=== PATIENT | male | born 1970 | race Caucasian/White ===

== ENCOUNTER → 2020-09-10 | Outpatient (CLI) | payer BC ==
[~2020-09-10] MED LIST: CELECOXIB200 MG PO; FISH OIL 1,001000 M2 PO; HYDROXYCHLOROQ200 M1 PO; MULTI VITAMIN1 EACH PO; PAROXETINE HCL10 MG PO
== END ==
LOC: LAB 09:19
PROVIDERS: ATTEND Surgery
DX: Z01.812 Encounter for preprocedural laboratory examination (principal); Z20.828 Contact with and (suspected) exposure to other viral communicable diseases

== ENCOUNTER → 2020-09-15 | Day surgery (SDC) | payer BC ==
[~2020-09-15] VITALS: Ht 167.6 cm; Wt 72.6 kg
[~2020-09-15] MED LIST changes: +NORCO 5-325 TA1 EAC2 PO
[2020-09-15 12:12] VITALS: BP 115/68
[2020-09-15 14:20] VITALS: BP 115/68
[2020-09-15 14:21] VITALS: BP 115/68
--- NOTE | 2020-09-16 15:08 | O ---
[facility] [place] [address] OPERATIVE REPORT Name: DILLON HDEZ Room #: REG [facility]..#: [id number] Admission: 09/15/20 Attend Phys: Carter Navarro MD Discharge: Date of : 72 Report #: [id number] THIS REPORT FOR: cc: Luana Campbell MD, Constance M. MD Chu,Carter Mayo MD ~ CC: LUANA Navarro DATE OF SERVICE: 09/15/2020 PREOPERATIVE DIAGNOSIS: Bilateral inguinal hernia. POSTOPERATIVE DIAGNOSES: Bilateral direct inguinal hernia, small component of right indirect sac. PROCEDURE PERFORMED: Laparoscopic properitoneal repair of bilateral inguinal hernia with mesh. SURGEON: Carter Navarro MD COMPLICATIONS: None. BLOOD LOSS: 5 mL. PROCEDURE NOTE: With the patient under general anesthesia, abdomen was prepped and draped in sterile fashion. Spaulding catheter was placed after the patient was asleep. Timeout was performed. The patient did receive preoperative IV antibiotics. 0.25% Marcaine was used to anesthetize the skin lateral to the umbilicus on the right side. Transverse incision was made adjacent to the umbilicus on the right side. After dissecting through the skin and subcutaneous tissue, anterior fascia was identified. The anterior fascia was incised transversely. The muscle was spread. The posterior sheath was then palpated. The space between the muscle and the posterior sheath was dissected without difficulty. The properitoneal space was dissected bluntly with my finger. An 11 mm balloon trocar was placed. The CO2 was administered through this. With the camera, I was able to open the properitoneal space inferiorly. Once I was freed enough, I was able to put a 5-mm trocar in the properitoneal space. Dissection was then carried out with cautery and blunt dissection, freeing the properitoneal space. Dissection carried down to the pubic area. The areolar tissue was divided free. The pubic bone was isolated. I was able to see the right inferior epigastric vessel easily. Dissection was carried out laterally, freeing the lateral wall. Another 5-mm trocar was placed in the right lateral abdomen. Dissection was then carried out on the left side. The left properitoneal space was opened up. The inferior epigastric vessel on the left [address] [address] OPERATIVE REPORT Name: DILLON HDEZ Room #: [facility]..#: [id number] Admission: 09/15/20 Attend Phys: Carter Navarro MD Discharge: Date of : 72 Report #: [id number] side was visualized. There was a lobulated fat that was adhesed to the wall. Once this was freed, a direct defect was identified, moderate size. Dissection laterally over the cord structure exposed the peritoneal reflection. It did not go up into the internal ring. This peritoneal reflection was easily dissected free from the underlying cord structures and swept downward away from the cord. Dissection was then carried out on the right side. The patient did have a direct defect similar to the left side visualized. This is smaller size. Dissection over the cord structure did show peritoneum up along the cord structure. This is up a little higher than the left. This is a small indirect hernia sac component. The peritoneum was pulled off of underneath cord structure, the vas. This was reduced. Once this was completed, a left large 3DMax lightweight mesh was placed through the balloon trocar. This was then opened in the properitoneal space. This was positioned. This covered the internal ring and covered the direct hernia defect well. The mesh was tacked laterally with SorbaFix inferomedially to the Jose's ligament and SorbaFix superomedially to the rectus muscle. A second piece was then placed with the right side. This was positioned properly and then tacked with SorbaFix. This was tacked laterally to the wall, medially to the Jose's ligament, inferomedially to Jose's ligament, superomedially to the rectus muscle. Both sites covered well. There is an overlap of the mesh. CO2 was evacuated. Trocars then removed. The fascia defect at the cutdown site was closed with [id number] 0 Vicryl x 2. Skin was then irrigated. Skin was closed with 5-0 PDS. Steri-Strips, Band-Aids applied. The patient tolerated the procedure well and was taken to recovery room. <ELECTRONICALLY SIGNED> By: Carter Navarro MD 09/16/20 [id number] Carter Navarro MD /nt
== END | disposition home or self-care (01) ==
LOC: OR 10:12
PROVIDERS: ATTEND Surgery
DX: K40.20 Bilateral inguinal hernia, without obstruction or gangrene, not specified as recurrent (principal); M19.90 Unspecified osteoarthritis, unspecified site; F41.9 Anxiety disorder, unspecified; Z98.890 Other specified postprocedural states; Z79.899 Other long term (current) drug therapy
CPT/HCPCS: 50010; 50101; 50411; 50507; 50555; 50848; 52265; 53065; 53307; 56525; 56526; 62110; 62900; 70005